=== PATIENT | female | born 1960 | race Caucasian/White ===

== ENCOUNTER 2021-03-26 07:29 | Emergency (ER) | payer OTHER ==
[~2021-03-26] VITALS: Ht 157.5 cm; Wt 51.9 kg
--- NOTE | 2021-03-26 09:23 | NUR ---
CONTROL CLERK HEAD: PT TO ROOM FROM LOBBY
--- NOTE | 2021-03-26 09:29 | NUR ---
PT BIB SELF VIA POV. PER PT SHE HAS BEEN DIZZY AND NAUSEATED SINCE YESTERDAY. PT ALSO STATES SHE FEELS LIKE SHE HAS A LUMP ON RLQ OF ABD. PT RESTING IN [facility], MONITORING IN PLACE, WARM BLANKET PROVIDED, VERONICA QUEZADA.
--- NOTE | 2021-03-26 10:59 | NUR ---
PT AMBULATED STEADILY TO RESTROOM. PT BACK IN [facility].
--- NOTE | 2021-03-26 11:08 | NUR ---
REPORT GIVEN TO JIGNESH EDWARDS.
[2021-03-26] MEDS ORDERED: ONDANSETRON ODT 4 MG ONE (11:22)
[2021-03-26] MEDS ORDERED: ONDANSETRON ODT 8 MG PO ONE (11:30)
[2021-03-26 11:56] LABS: BASOPHILS % (AUTO) 1 % (0-1); EOSINOPHILS % (AUTO) 3 % (1-7); LYMPHOCYTES % (AUTO) 45 % (22-44); MEAN CORPUSCULAR HEMOGLOBIN 31.1 pg (27.0-34.8); MEAN CORPUSCULAR HGB CONC 33.9 g/dL (32.4-35.8); MEAN PLATELET VOLUME 7.2 fL (7.4-10.4); MONOCYTES % (AUTO) 9 % (2-9); NEUTROPHILS % (AUTO) 42 % (42-75); PLATELET COUNT 145 x10^3/uL (130-400); RED CELL DISTRIBUTION WIDTH 14.9 % (9.6-15.2)
[2021-03-26 12:04] LABS: ALANINE AMINOTRANSFERASE 22 U/L (12-78); ALBUMIN 3.9 g/dL (3.4-5.0); ANION GAP 8 mmol/L (5-15); CALCIUM 8.8 mg/dL (8.5-10.1); CHLORIDE 106 mmol/L (98-107); CREATININE 0.64 mg/dL (0.55-1.02)
[2021-03-26 12:06] LABS: ALKALINE PHOSPHATASE 68 U/L (45-117); BILIRUBIN,TOTAL 0.4 mg/dL (0.2-1.0); TOTAL PROTEIN 7.5 g/dL (6.4-8.2)
[2021-03-26 12:54] VITALS: BP 141/88
== END 2021-03-26 12:57 | disposition home or self-care (01) ==
LOC: ED 10:01
DX: R11.0 Nausea (principal); F17.200 Nicotine dependence, unspecified, uncomplicated; R42 Dizziness and giddiness
CPT/HCPCS: 36415; 80053; 85025; 99283; Q0162